=== PATIENT | female | born 1950 | race Hispanic/Latino ===

== ENCOUNTER 2017-05-29 13:04 | Outpatient (CLI) | payer MEDICARE ==
--- NOTE | 2017-05-29 16:24 | XRay Report ---
XRAY RIGHT KNEE 4 THREE VIEWS: 05/29/17 13:04:00 CLINICAL: Pain FINDINGS: Status post total knee replacement with normal appearance of the prosthesis. No apparent loosening. No fracture or dislocation. Nonspecific soft tissue edema in the anterior distal thigh and prepatellar soft tissues. No soft tissue air or foreign body. No joint effusion. IMPRESSION: Nonspecific soft tissue swelling but otherwise normal status post total knee replacement.
== END 2017-05-29 13:05 | disposition home or self-care (01) ==
LOC: SPVIMAG 13:04
PROVIDERS: ATTEND Orthopaedic Surgery Sports Medicine
DX: M25.561 Pain in right knee (principal); M25.461 Effusion, right knee; Z96.651 Presence of right artificial knee joint